=== PATIENT | male | born 1980 | race African-American/Black ===

== ENCOUNTER 2017-02-20 11:01 | Emergency (ER) | payer MEDICAID ==
[~2017-02-20] VITALS: Ht 182.9 cm; Wt 84.0 kg
[2017-02-20] MEDS ORDERED: BACITRACIN ZINC OINT UDPKT TOP ONE (11:30)
[2017-02-20] MEDS ORDERED: LIDOCAINE HCL 1% 20ML VIAL (Pyxis) INJ INFIL ONE (11:30)
[2017-02-20 12:12] VITALS: BP 123/74
== END 2017-02-20 12:18 | disposition home or self-care (01) ==
LOC: ER 11:20
DX: S61.217A Laceration without foreign body of left little finger without damage to nail, initial encounter (principal); F17.200 Nicotine dependence, unspecified, uncomplicated; W23.0XXA Caught, crushed, jammed, or pinched between moving objects, initial encounter; Y93.89 Activity, other specified; Y92.89 Other specified places as the place of occurrence of the external cause; Y99.8 Other external cause status
CPT/HCPCS: 73120; 99284; J3490; X7700; Z7610

== ENCOUNTER 2017-02-23 11:19 | Emergency (ER) | payer MEDICAID ==
[~2017-02-23] VITALS: Ht 182.9 cm; Wt 86.0 kg
[2017-02-23] MEDS ORDERED: IBUP-2028 PO (12:28)
[2017-02-23] MEDS ORDERED: IBUPROFEN 600MG TABLET PO ONE (14:30)
[2017-02-23 14:35] VITALS: BP 127/69
== END 2017-02-23 15:48 | disposition home or self-care (01) ==
LOC: ER 12:24
DX: S61.212D Laceration without foreign body of right middle finger without damage to nail, subsequent encounter (principal); S60.15 Contusion of little finger with damage to nail; X58.XXXD Exposure to other specified factors, subsequent encounter; F17.200 Nicotine dependence, unspecified, uncomplicated; Y93.89 Activity, other specified; Y99.8 Other external cause status; Y92.89 Other specified places as the place of occurrence of the external cause
CPT/HCPCS: 11730; 99283